=== PATIENT | female | born 1990 | race American Indian/Alaskan Native ===

== ENCOUNTER 2016-12-23 13:41 | Emergency (ER) | payer MEDICAID ==
[2016-12-23 14:53] LABS: Basophils % (Auto) 0.4 % (0.0-1.8); Eosinophils % (Auto) 0.2 % (0.0-4.3); Hematocrit 39.8 % (30.3-42.9); Hemoglobin 13.4 gm/dl (10.1-14.3); Mean Corpuscular HGB Conc 34 % (30-34); Mean Corpuscular Hemoglobin 31 pg (28-32); Mean Corpuscular Volume 91 fl (79-97); Platelet Count 280 K/mm3 (140-440); White Blood Count 10.1 K/mm3 (4.5-11.0)
[2016-12-23 15:23] LABS: Anion Gap 21 mmol/L; BUN/Creatinine Ratio 20; Blood Urea Nitrogen 10 mg/dL (7-17); Calcium 9.4 mg/dL (8.4-10.2); Carbon Dioxide 24 mmol/L (22-30); Chloride 97.8 mmol/L (98-107); Glucose 83 mg/dL (65-100); Potassium 4.3 mmol/L (3.6-5.0); Sodium 138 mmol/L (137-145)
[2016-12-23 16:18] LABS: Bilirubin,Urine NEG (Negative); Blood,Urine NEG (Negative); Ketones,Urine 20 mg/dL (Negative); Leukocyte Esterase,Urine TR (Negative); Mucus,Urine 3+ /HPF; Nitrite,Urine NEG (Negative)
[2016-12-23] MEDS ORDERED: ZOFRAN ODT ONE (19:25)
[2016-12-23] MEDS ORDERED: ZOFRAN ODT PO ONE (19:45)
--- NOTE | 2016-12-24 06:20 | Emergency Department Report ---
ED General Adult HPI - General Chief complaint: Nausea/Vomiting/Diarrhea Stated complaint: CHEST PAIN, VOMITING,NAUSEA Time Seen by Provider: 12/24/16 06:18 Source: patient Mode of arrival: Ambulatory Limitations: No Limitations - History of Present Illness Initial comments: This patient does not complain of chest pain whatsoever. She is not coughing or short of breath nor complaining of these symptoms. She simply states that she is 6 weeks having nausea and vomiting. She has no OB doctor. She has taken no medicine for her symptoms. She has not had a prior ultrasound. -: Gradual, hour(s) Improves with: none Worsens with: none Associated Symptoms: denies other symptoms - Related Data Previous Rx's Medication Instructions Recorded Last Taken Type Ondansetron [Zofran Odt] 4 mg PO Q6H PRN #7 tab.rapdis 12/24/16 Unknown Rx Allergies Allergy/AdvReac Type Severity Reaction Status Date / Time No Known Allergies Allergy Unverified 12/23/16 13:47 ED Review of Systems ROS: Stated complaint: CHEST PAIN, VOMITING,NAUSEA Other details as noted in HPI Constitutional: denies: chills, fever Eyes: denies: eye pain, eye discharge, vision change ENT: denies: ear pain, throat pain Respiratory: denies: cough, shortness of breath, wheezing Cardiovascular: denies: chest pain, palpitations Endocrine: no symptoms reported Gastrointestinal: nausea, vomiting. denies: abdominal pain, diarrhea Genitourinary: denies: urgency, dysuria, discharge Musculoskeletal: denies: back pain, joint swelling, arthralgia Skin: denies: rash, lesions Neurological: denies: headache, weakness, paresthesias Psychiatric: denies: anxiety, depression Hematological/Lymphatic: denies: easy bleeding, easy bruising ED Past Medical Hx - Past Medical History Additional medical history: 6 weeks by dates - Surgical History Additional Surgical History: - Social History Smoking Status: Former Smoker Substance Use Type: Marijuana - Medications Home Medications: Home Medications Medication Instructions Recorded Confirmed Last Taken Type Ondansetron [Zofran Odt] 4 mg PO Q6H PRN #7 tab.rapdis 12/24/16 Unknown Rx ED Physical Exam - General Limitations: No Limitations General appearance: alert, in no apparent distress - Head Head exam: Present: atraumatic, normocephalic - Eye Eye exam: Present: normal appearance. Absent: scleral icterus - ENT ENT exam: Present: mucous membranes moist - Neck Neck exam: Present: normal inspection - Respiratory Respiratory exam: Present: normal lung sounds bilaterally. Absent: respiratory distress - Cardiovascular Cardiovascular Exam: Present: regular rate, normal rhythm. Absent: systolic murmur, diastolic murmur, rubs, gallop - GI/Abdominal GI/Abdominal exam: Present: soft, normal bowel sounds. Absent: distended, tenderness, guarding, rebound, rigid - Extremities Exam Extremities exam: Present: normal inspection, full ROM, normal capillary refill. Absent: tenderness, pedal edema, joint swelling, calf tenderness - Back Exam Back exam: Present: normal inspection - Neurological Exam Neurological exam: Present: alert, oriented X3, CN II-XII intact. Absent: motor sensory deficit - Psychiatric Psychiatric exam: Present: normal affect, normal mood - Skin Skin exam: Present: warm, dry, intact, normal color. Absent: rash ED Course Vital Signs 12/23/16 12/24/16 12/24/16 13:47 02:15 08:35 Temperature 98.8 F 98.6 F 97.8 F Pulse Rate 94 H 67 86 Respiratory 18 18 Rate Blood Pressure 120/74 122/66 O2 Sat by Pulse 99 100 Oximetry - Reevaluation(s) Reevaluation #1: Patient resting comfortably. She has no complaint of chest pain. No complaint of shortness of breath. Her nausea has resolved. She is appropriate for outpatient disposition. 12/24/16 09:04 ED Medical Decision Making - Lab Data Result diagrams: 12/23/16 14:31 12/23/16 14:31 Laboratory Results - last 24 hr 12/23/16 12/23/16 12/23/16 14:31 14:31 14:31 WBC 10.1 RBC 4.40 Hgb 13.4 Hct 39.8 MCV 91 MCH 31 MCHC 34 RDW 12.0 L Plt Count 280 Lymph % (Auto) 29.4 [place] % (Auto) 7.5 H Eos % (Auto) 0.2 Baso % (Auto) 0.4 Lymph # 3.0 [place] # 0.8 Eos # 0.0 Baso # 0.0 Seg Neutrophils % 62.5 Seg Neutrophils # 6.3 Sodium 138 Potassium 4.3 Chloride 97.8 L Carbon Dioxide 24 Anion Gap 21 BUN 10 Creatinine 0.5 L Estimated GFR > 60 BUN/Creatinine Ratio 20 Glucose 83 Calcium 9.4 HCG, Qual Positive Urine Color Urine Turbidity Urine pH Ur Specific [place] Urine Protein Urine Glucose (UA) Urine Ketones Urine Blood Urine Nitrite Urine Bilirubin Urine Urobilinogen Ur Leukocyte Esterase Urine WBC (Auto) Urine RBC (Auto) U Epithel Cells (Auto) Urine Mucus 12/23/16 15:35 WBC RBC Hgb Hct MCV MCH MCHC RDW Plt Count Lymph % (Auto) [place] % (Auto) Eos % (Auto) Baso % (Auto) Lymph # [place] # Eos # Baso # Seg Neutrophils % Seg Neutrophils # Sodium Potassium Chloride Carbon Dioxide Anion Gap BUN Creatinine Estimated GFR BUN/Creatinine Ratio Glucose Calcium HCG, Qual Urine Color [place] Urine Turbidity Clear Urine pH 6.0 Ur Specific [place] 1.032 H Urine Protein 30 mg/dl Urine Glucose (UA) Neg Urine Ketones 20 Urine Blood Neg Urine Nitrite Neg Urine Bilirubin Neg Urine Urobilinogen 4.0 Ur Leukocyte Esterase Tr Urine WBC (Auto) 3.0 Urine RBC (Auto) 3.0 U Epithel Cells (Auto) 11.0 Urine Mucus 3+ Laboratory Results - last 24 hr 12/23/16 12/23/16 12/23/16 14:31 14:31 14:31 WBC 10.1 RBC 4.40 Hgb 13.4 Hct 39.8 MCV 91 MCH 31 MCHC 34 RDW 12.0 L Plt Count 280 Lymph % (Auto) 29.4 [place] % (Auto) 7.5 H Eos % (Auto) 0.2 Baso % (Auto) 0.4 Lymph # 3.0 [place] # 0.8 Eos # 0.0 Baso # 0.0 Seg Neutrophils % 62.5 Seg Neutrophils # 6.3 Sodium 138 Potassium 4.3 Chloride 97.8 L Carbon Dioxide 24 Anion Gap 21 BUN 10 Creatinine 0.5 L Estimated GFR > 60 BUN/Creatinine Ratio 20 Glucose 83 Calcium 9.4 HCG, Qual Positive Urine Color Urine Turbidity Urine pH Ur Specific [place] Urine Protein Urine Glucose (UA) Urine Ketones Urine Blood Urine Nitrite Urine Bilirubin Urine Urobilinogen Ur Leukocyte Esterase Urine WBC (Auto) Urine RBC (Auto) U Epithel Cells (Auto) Urine Mucus 12/23/16 15:35 WBC RBC Hgb Hct MCV MCH MCHC RDW Plt Count Lymph % (Auto) [place] % (Auto) Eos % (Auto) Baso % (Auto) Lymph # [place] # Eos # Baso # Seg Neutrophils % Seg Neutrophils # Sodium Potassium Chloride Carbon Dioxide Anion Gap BUN Creatinine Estimated GFR BUN/Creatinine Ratio Glucose Calcium HCG, Qual Urine Color [place] Urine Turbidity Clear Urine pH 6.0 Ur Specific [place] 1.032 H Urine Protein 30 mg/dl Urine Glucose (UA) Neg Urine Ketones 20 Urine Blood Neg Urine Nitrite Neg Urine Bilirubin Neg Urine Urobilinogen 4.0 Ur Leukocyte Esterase Tr Urine WBC (Auto) 3.0 Urine RBC (Auto) 3.0 U Epithel Cells (Auto) 11.0 Urine Mucus 3+ - EKG Data -: EKG Interpreted by Me EKG shows normal: sinus rhythm, axis, intervals, QRS complexes, ST-T waves Rate: normal - EKG Data Interpretation: normal EKG - Radiology Data Radiology results: report reviewed interpreted by me: Ultrasound shows 6 week viable fetus and no complication. Critical care attestation.: If time is entered above; I have spent that time in minutes in the direct care of this critically ill patient, excluding procedure time. ED Disposition Clinical Impression: Hyperemesis gravidarum Disposition: DC-01 TO HOME OR SELFCARE Is pt being admited?: No Does the pt Need Aspirin: No Condition: Stable Instructions: Hyperemesis Gravidarum (ED) Additional Instructions: Follow-up with human resources hr generalist. Rx as needed. Return any acute change or recurrent symptoms. Prescriptions: Ondansetron [Zofran Odt] 4 mg PO Q6H PRN #7 tab.rapdis PRN Reason: Nausea Referrals: PRIMARY CAREMD [Primary Care Provider] - 3-5 Days [facility] [Provider Group] - 2-3 Days Time of Disposition: 09:06
[2016-12-24] MEDS ORDERED: NACL 0.9% 1000 ML 1,000 ML IV ONE (06:44)
[2016-12-24] MEDS ORDERED: ZOFRAN IV ONE (06:44)
--- NOTE | 2016-12-24 08:24 | Ultrasound Report ---
FINAL REPORT EXAM: US OB \T\lt; = 14 WEEKS FETUS HISTORY: vomiting TECHNIQUE: Early obstetrical ultrasound. Transabdominal scanning performed. This is read in conjunction with transvaginal study performed concurrently. PRIORS: None. FINDINGS: There is a gestational sac in the uterus. This contains a small yolk sac and pole. The crown rump length measurement corresponds to a gestational age of 6 weeks 3 days. This corresponds to SUPRIYA of 08/16/2017. Patient's clinical age based on LMP of 11/07/2016 is 6 weeks 5 days with SUPRIYA of 08/14/2017.. Cardiac activity is identified, measured at 123 beats per minute. There is no subchorionic hemorrhage seen. Ovaries are unremarkable. IMPRESSION: There is a single live intrauterine of approximately 6 weeks 3 days with corresponding SUPRIYA of 08/16/2017 based on today's ultrasound measurements. There is no significant abnormality identified.
--- NOTE | 2016-12-24 08:24 | Ultrasound Report ---
FINAL REPORT EXAM: US OB TRANSVAGINAL HISTORY: vomiting TECHNIQUE: Early obstetrical ultrasound. Transvaginal scanning performed. This is read in conjunction with transabdominal study performed concurrently. PRIORS: None. FINDINGS: There is a gestational sac in the uterus. This contains a small yolk sac and pole. The crown rump length measurement corresponds to a gestational age of 6 weeks 3 days. This corresponds to SUPRIYA of 08/16/2017. Patient's clinical age based on LMP of 11/07/2016 is 6 weeks 5 days with SUPRIYA of 08/14/2017.. Cardiac activity is identified, measured at 123 beats per minute. There is no subchorionic hemorrhage seen. Ovaries are unremarkable. IMPRESSION: There is a single live intrauterine of approximately 6 weeks 3 days with corresponding SUPRIYA of 08/16/2017 based on today's ultrasound measurements. There is no significant abnormality identified.
[2016-12-24 10:54] VITALS: BP 112/61
== END 2016-12-24 10:10 | disposition home or self-care (01) ==
LOC: ED 13:41
DX: O21.0 Mild hyperemesis gravidarum (principal); F12.10 Cannabis abuse, uncomplicated; Z3A.01 Less than 8 weeks gestation of pregnancy; Z87.891 Personal history of nicotine dependence
CPT/HCPCS: 36415; 76801; 76817; 80048; 81001; 81025; 84703; 85025; 93005; 93010; 96361; 96374; 99284; J2405; J7030; Q0162

== ENCOUNTER 2017-06-02 04:13 | Outpatient (CLI) | payer OTHER, MEDICAID ==
[2017-06-02] MEDS ORDERED: LACTATED RINGERS 500 ML IV ONE (04:15)
[2017-06-02 04:29] VITALS: BP 115/56
[2017-06-02] MEDS ORDERED: NORMOSOL-R PH 7.4 1,000 ML IV ONE (04:35)
[2017-06-02] MEDS ORDERED: ZOFRAN IV PRN (05:13)
[2017-06-02 05:40] LABS: Bilirubin,Urine NEG (Negative); Blood,Urine NEG (Negative); Color,Urine Amber (Yellow); Mucus,Urine 3+ /HPF; Urobilinogen,Urine < 2.0 mg/dL (<2.0)
[2017-06-02] MEDS ORDERED: TRANSDERM-SCOP TD ONE (05:49)
[2017-06-02] MEDS ORDERED: REGLAN IV ONE (05:49)
== END 2017-06-02 06:35 | disposition home or self-care (01) ==
LOC: TRG 04:13
PROVIDERS: ATTEND Obstetrics & Gynecology
DX: O47.03 False labor before 37 completed weeks of gestation, third trimester (principal); Z3A.29 29 weeks gestation of pregnancy; Z87.891 Personal history of nicotine dependence
CPT/HCPCS: 59025; 81001; 96360; 96374; J2405; J2765; J7120

== ENCOUNTER 2017-07-17 16:04 | Inpatient (IN) | payer OTHER ==
[~2017-07-17 16:04] MED LIST: NACL 0.9% IR ONE; WATER FOR IRRIG STERILE IR ONE
[2017-07-17 17:21] LABS: Bacteria,Urine 3+ /HPF (Negative); Bilirubin,Urine SM (Negative); Blood,Urine NEG (Negative); Color,Urine Amber (Yellow); Mucus,Urine 3+ /HPF
[2017-07-17 17:24] LABS: Hematocrit 28.9 % (30.3-42.9); Hemoglobin 9.9 gm/dl (10.1-14.3); Mean Corpuscular HGB Conc 34 % (30-34); Mean Corpuscular Hemoglobin 31 pg (28-32); Mean Corpuscular Volume 89 fl (79-97); Platelet Count 147 K/mm3 (140-440); Red Blood Count 3.23 M/mm3 (3.65-5.03); Red Cell Distribution Width 13.2 % (13.2-15.2)
[2017-07-17 17:25] LABS: Ictotest,Urine Negative (Negative)
[2017-07-17 17:58] LABS: Alanine Aminotransferase 5 units/L (7-56)
[2017-07-17] MEDS ORDERED: DEEP SEA NS PRN (18:05)
[2017-07-17] MEDS ORDERED: COLACE PO PRN (18:05)
[2017-07-17] MEDS ORDERED: AMBIEN PO PRN (18:05)
[2017-07-17] MEDS ORDERED: ZOFRAN IV PRN (18:05)
[2017-07-17] MEDS ORDERED: BENADRYL PO PRN (18:05)
[2017-07-17] MEDS ORDERED: TYLENOL PO PRN (18:05)
--- NOTE | 2017-07-17 18:08 | History and Physical Report ---
History of Present Illness Date of examination: 07/17/17 Chief complaint: sent from the office with elevated blood pressures History of present illness: Pt is a 27 year old -Filipino female SUPRIYA 08/12/17 at 36w2d who presents from the office with lower extremity edema and elevated blood pressures. BPs in mild range and pt denies any symptoms of headache, blurry vision or RUQ pain presently. She reports good movement and denies vaginal bleeding or leakage of fluid. She has had care at [facility] since 10 wks with comanagement by M secondary to a h/o of 32 wks; Rubella non-immune status, nausea and vomiting throughout the entire , anemia, trichomonas s/p RX for Flagyl today and previous section x 1. Her GBS status is not available at this time. Past History Past Medical History: no pertinent history Past Surgical History: section [employer] History: chlamydia (remote from this ), gonorrhea (not), trichomonas (treated on 07/17/17 ) Family/Genetic History: diabetes Social history: no significant social history - Obstetrical History Expected Date of Delivery: 08/12/17 Actual Gestation: 36 Week(s) 2 Day(s) : 2 Para: 1 Hx # Term Pregnancies: 0 Number of Pregnancies: 1 Spontaneous Abortions: 0 Induced : 0 Number of Living Children: 1 Medications and Allergies Allergies Allergy/AdvReac Type Severity Reaction Status Date / Time No Known Allergies Allergy Verified 01/10/17 20:17 Home Medications Medication Instructions Recorded Confirmed Last Taken Type No Known Home Medications [No 07/17/17 07/17/17 Unknown History Reported Home Medications] Active Meds: Active Medications Acetaminophen (Tylenol) 650 mg PO Q4H PRN PRN Reason: Pain MILD(1-3)/Fever >100.5/ROWELL Diphenhydramine HCl (Benadryl) 25 mg PO Q6H PRN PRN Reason: Itching Docusate Sodium (Colace) 100 mg PO Q12H PRN PRN Reason: Constipation Lactated Ringer's (Lactated Ringers) 1,000 mls @ 100 mls/hr IV DIRECT CHRISTOPHER Review of Systems All systems: negative - Vital Signs Vital signs: Vital Signs Pulse BP 81 134/81 07/17/17 16:44 07/17/17 16:44 Temp Pulse Resp BP Pulse Ox 80 134/88 07/17/17 17:59 07/17/17 17:59 - Physical Exam Breasts: Positive: deferred Cardiovascular: Regular rate Lungs: Positive: Clear to auscultation Abdomen: Positive: soft (gravid, obese ) Uterus: Positive: enlarged (gravid ) Extremities: Positive: edema (2+) - Obstetrical FHR: auscultation normal Uterine Contraction Monitor Mode: External Uterine Contraction Pattern: Irregular Uterine Tone Measurement Phase: Resting Uterine Contraction Intensity: Mild Results Result Diagrams: 07/17/17 16:51 07/17/17 16:51 Abnormal lab results 07/17/17 07/17/17 07/17/17 Range/Units 16:30 16:51 16:51 RBC 3.23 L (3.65-5.03) M/mm3 Hgb 9.9 L (10.1-14.3) gm/dl Hct 28.9 L (30.3-42.9) % Creatinine 0.6 L (0.7-1.2) mg/dL ALT 5 L (7-56) units/L Lactate Dehydrogenase 317 H (91-180) units/L Urine WBC (Auto) 59.0 H (0.0-6.0) /HPF All other labs normal. Assessment and Plan A: IUP at 36w2d Gestational HTN vs Preeclampsia Previous x 1 H/o 32 wk delivery Trichomonas GBS unknown P: Admit to antepartum service Begin 24 hr urine collection Serial BPs Monitor for signs of severe disease Closely monitor maternal and status
[2017-07-17] MEDS ORDERED: LACTATED RINGERS 1,000 ML IV SCH ×3 (19:00→20:00)
[2017-07-17] MEDS ORDERED: MAGNESIUM SULFATE 4GM/100ML 4 GM/100 ML BAG IV ONE (19:51)
[2017-07-17] MEDS ORDERED: BICITRA PO ONE (19:54)
[2017-07-17] MEDS ORDERED: CALCIUM GLUCONATE IV ONE (19:54)
[2017-07-17] MEDS ORDERED: PEPCID IV ONE (19:54)
[2017-07-17] MEDS ORDERED: REGLAN IV ONE (19:54)
[2017-07-17] MEDS ORDERED: APRESOLINE IV PRN (19:54)
--- NOTE | 2017-07-17 19:59 | Event Note ---
Date: 07/17/17 Late entry. Called by RN for notification of blood pressures with systolic BP 170-180s and headache. Pt with severe features. Begin magnesium sulfate for seizure prophylaxis and prepare pt for repeat section. There are three cesareans already scheduled prior to this one. Continue to closely monitor maternal and status.
[2017-07-17] MEDS ORDERED: PITOCin/NS 20 UNIT/1000ML DRIP 20 UNITS/1,000 ML BAG IV SCH ×2 (20:00)
[2017-07-17] MEDS ORDERED: ANCEF/STERILE WATER 2 GM/20 ML 2 GM/20 ML SYRINGE IV NR (20:00)
[2017-07-17] MEDS ORDERED: MAGNESIUM SULFATE 40GM/1000ML 40 GM/1,000 ML BAG IV SCH (20:00)
[2017-07-17] MEDS: MAGNESIUM SULFATE 40GM/1000ML 40 GM/1,000 ML BAG IV SCH (21:15)
[2017-07-17] MEDS ORDERED: CELESTONE SOLUSPAN IM ONE (21:17)
[2017-07-17] MEDS ORDERED: FLAGYL PO ONE (21:49)
--- NOTE | 2017-07-18 01:18 | Procedure Note ---
OB Delivery Note - Delivery Date of Delivery: 07/18/17 Surgeon: VIRIDIANA PEREZ Estimated blood loss: other (800 mL) - Section Preop diagnosis: repeat , other (Severe Preeclampsia ) Postop diagnosis: same section procedure: section, repeat low transverse Disposition: PACU Complications: none Narrative: Please see operative report. - A at 1 minute: 8 at 5 minutes: 9 Infant Gender: Female (3021g (6lb 10 oz) @ 0020 am)
--- NOTE | 2017-07-18 01:20 | Operative Report ---
Operative Report Operative Report: Date of procedure: July 18, 2017 Preoperative diagnosis: 1) IUP at 36w3d 2) Severe Preeclampsia 3) Previous x 1 4) Obesity Postoperative diagnosis: Same Procedure: Repeat low transverse section Surgeon: Hui Blank M.D. Anesthesia: Spinal-Epidural Findings: 1) Viable female , Apgars 8 and 9, weight 3021g, (6 lb 10 oz) in vertex presentation 2) Normal-appearing uterus ovaries and tubes Estimated blood loss: 800 mL IV fluids: 1400 mL Urine output: 200 mL, clear at the end of the procedure Drains: Nieves to gravity Specimens: Placenta to pathology Complications: None. Counts correct x 3 Disposition: Stable to PACU Indication for procedure: Pt is 27 year old at 36w3d who was developed severe preeclampsia with a h/o one previous . The decision was made to proceed with delivery. Operation in detail: After the risks, benefits, alternatives and complications were explained to the patient she gave informed consent for the procedure. She was subsequently taken to the operating room where spinal-epidural anesthesia was noted to be adequate. She was subsequently placed in the dorsal supine position with leftward tilt and prepped and draped in a normal sterile fashion. heart tones were noted to be in the 135s prior to incision. A timeout was performed. A Pfannenstiel skin incision was made with the knife and carried down to the layer of the fascia with the Bovie. The fascia was incised in the midline and the fascial incision was extended bilaterally with the Bovie. Attention was then turned to the superior aspect of the incision which was grasped with two Kochers, tented up, and dissected off the rectus muscles. Attention was then turned to the inferior aspect of the incision which was grasped with two Kochers , tented up and dissected off the rectus muscles. The rectus muscles were then in the midline and partially transected for adequate visualization. The peritoneum was then entered bluntly. The peritoneal incision was extended with good visualization of the bladder. The peritoneal incision was then stretched. An Lenin self-retaining retractor was placed for visualization. The bladder blade was placed. The vesicouterine peritoneum was grasped with smooth pickups and incised with Metzenbaum scissors. Metzenbaum scissors were used to extend the incision bilaterally. The bladder flap was then created digitally and the bladder blade was replaced. A transverse incision was made in the lower uterine segment with a knife and extended bilaterally with the bandage scissors. The head was delivered without difficulty followed by shoulders and body. was bulb suctioned at delivery. The cord was clamped and cut and the was handed to NICU staff in attendance. The placenta was then delivered manually. The uterus was then exteriorized and cleared of all clots and debris. The hysterotomy was then reapproximated with 0 Vicryl in a running locked fashion. A second layer of the same suture was used in imbricating fashion. A figure of eight of 0 Vicryl was placed at the center of the incision to obtain hemostais. The hysterotomy was inspected and hemostasis was noted. The Lenin self- retaining retractor was removed. The gutters were irrigated and cleared of all clots and debris. The hysterotomy was again inspected and noted to be hemostatic. Surgicel was placed over the hysterotomy. The peritoneum was reapproximated with 3-0 Vicryl in a running fashion incorporating the rectus muscles. Surgicel was then placed over the rectus muscles. The fascia was reapproximated with 0 Vicryl in a running fashion. The subcutaneous tissue was reapproximated with 3-0 Vicryl. The skin was reapproximated with 4-0 Vicryl in a subcuticular fashion. The incision was then covered with steri strips and a pressure dressing. The procedure was then ended. The patient tolerated the procedure well and was taken to the PACU in stable condition. All instrument, lap, and needle counts were correct 3.
[2017-07-18] MEDS ORDERED: NARCAN 0.4 MG/1 ML IV PRN ×2 (01:40→03:48)
[2017-07-18] MEDS ORDERED: PHENERGAN PO PRN (01:40)
[2017-07-18] MEDS ORDERED: PHENERGAN PR PRN (01:40)
[2017-07-18] MEDS ORDERED: ZOFRAN IV PRN (01:40)
[2017-07-18] MEDS ORDERED: DILAUDID IV PRN (01:40)
--- NOTE | 2017-07-18 01:43 | Post Anesthesia Evaluation ---
- Post Anesthesia Evaluation Airway Patent: Yes Stable Respiratory Function: Yes Nausea/Vomiting: Yes Temp > 96.8F: Yes Pain Manageable: Yes Adequeate Hydration: Yes Anesthesia Complications: No Block Receding Appropriately: Not Applicable
[2017-07-18] MEDS: MAGNESIUM SULFATE 40GM/1000ML 40 GM/1,000 ML BAG IV SCH ×2 (02:05→16:55)
[2017-07-18] MEDS ORDERED: ANCEF/NS 1 GM/50 ML 1 GM/50 ML BAG IV SCH (03:48)
[2017-07-18] MEDS ORDERED: PITOCin/NS 20 UNIT/1000ML DRIP 20 UNITS/1,000 ML BAG IV SCH (03:48)
[2017-07-18] MEDS ORDERED: MYLICON PO PRN (03:48)
[2017-07-18] MEDS ORDERED: TORADOL IV PRN (03:48)
[2017-07-18] MEDS ORDERED: D5LR 1,000 ML IV SCH (03:48)
[2017-07-18] MEDS ORDERED: TUCKS PAD TP PRN (03:48)
[2017-07-18] MEDS ORDERED: TYLENOL PO PRN (03:48)
[2017-07-18] MEDS ORDERED: LANSINOH TP PRN (03:48)
[2017-07-18] MEDS ORDERED: SODIUM CHLORIDE FLUSH SYRINGE 10 ML IV NR (03:48)
[2017-07-18] MEDS ORDERED: MORPHINE IV PRN (03:48)
[2017-07-18] MEDS ORDERED: FLAGYL PO ONE (04:00)
[2017-07-18] MEDS ORDERED: ceFAZolin 1 GM in NACL 0.9% 20 ML IV SCH (04:00)
[2017-07-18] MEDS: ceFAZolin 1 GM in NACL 0.9% 20 ML IV SCH ×2 (08:17→16:49)
[2017-07-18] MEDS ORDERED: PRENATAL VITAMIN PO SCH (10:00)
[2017-07-18] MEDS: FEOSOL PO SCH (10:04)
[2017-07-18 13:54] LABS: Hematocrit 30.8 % (30.3-42.9); Hemoglobin 10.4 gm/dl (10.1-14.3)
[2017-07-18] MEDS: PERCOCET 5/325 PO PRN (21:57)
[2017-07-18] MEDS: MOTRIN PO PRN (21:59)
[2017-07-19] MEDS ORDERED: BOOSTRIX IM ONE (06:00)
[2017-07-19] MEDS ORDERED: M-M-R II VACCINE SUB-Q ONE (06:00)
[2017-07-19] MEDS: PERCOCET 5/325 PO PRN ×2 (08:15→13:15)
[2017-07-19] MEDS: MOTRIN PO PRN ×2 (08:15→16:49)
--- NOTE | 2017-07-19 08:54 | Progress Note ---
Assessment and Plan A: POD#1 s/p repeat section at 36 wks secondary to severe preeclampsia s/p 24 hrs of magnesium sulfate P: Routine postoperative care. Subjective - Subjective Date of service: 07/19/17 Principal diagnosis: s/p repeat , severe preeclampsia Interval history: No complaints at this time. Patient reports: appetite normal, voiding normally, pain well controlled, flatus , ambulating normally, no bowel movement : in NICU Objective - Vital Signs Latest vital signs: Vital Signs Temp Pulse Resp BP Pulse Ox 07/19/17 06:14 97.7 F 57 L 20 118/70 96 07/19/17 01:00 97.7 F 67 20 119/77 98 07/18/17 21:57 20 07/18/17 20:42 98.4 F 77 18 126/83 97 07/18/17 18:03 97.7 F 73 16 143/85 100 07/18/17 16:00 98.1 F 75 20 127/83 96 07/18/17 14:34 98.2 F 78 20 137/87 96 07/18/17 11:54 98.1 F 77 16 140/84 95 Intake and Output 07/18/17 07/19/17 07/19/17 22:59 06:59 14:59 Intake Total 1501.667 240 Output Total 2800 600 Balance -1298.333 -360 Intake: IV 741.667 MAGNESIUM SULFATE 40GM/ 741.667 1000ML 40 gm In 1,000 ml @ 2 GM/HR 50 mls/hr IV DIRECT CHRISTOPHER Rx#:[id number] Oral 760 240 Output: Urine 2800 600 Indwelling Catheter 2800 Void 600 Other: Total, Intake Amount 240 240 Total, Output Amount 1200 600 - Exam Breasts: Present: deferred Cardiovascular: Present: Regular rate Lungs: Present: Clear to auscultation Abdomen: Present: soft Uterus: Present: fundal height below umbilicus Extremities: Present: edema Incision: Present: dressed - Labs Labs: Abnormal lab results 07/18/17 07/18/17 Range/Units 13:35 19:24 Magnesium 5.40 H 5.50 H (1.7-2.3) mg/dL
[2017-07-19] MEDS: MILK OF MAGNESIA PO SCH ×2 (13:15→22:40)
[2017-07-19] MEDS: FEOSOL PO SCH (13:15)
[2017-07-20] MEDS: PERCOCET 5/325 PO PRN (03:25)
[2017-07-20] MEDS: MILK OF MAGNESIA PO SCH (04:30)
--- NOTE | 2017-07-20 18:48 | Progress Note ---
Assessment and Plan O: VSS AF A: Stable POD #2 s/p repeat C/S PIH P: Routine orders Discharge in am Subjective - Subjective Date of service: 07/20/17 Principal diagnosis: s/p repeat , severe preeclampsia Patient reports: appetite normal, voiding normally, pain well controlled, flatus , ambulating normally, other (c/o pedal edema) [place]: doing well, in NICU Objective - Vital Signs Latest vital signs: Vital Signs Temp Pulse Resp BP Pulse Ox 07/20/17 11:30 98.1 F 53 L 16 122/66 96 07/20/17 01:13 97.9 F 61 20 143/84 95 Intake and Output 07/20/17 07/20/17 07/20/17 06:59 14:59 22:59 Intake Total 240 Balance 240 Intake: Oral 240 Other: Total, Intake Amount 240 # Voids Void 1 - Exam Breasts: Present: deferred Abdomen: Present: normal appearance, soft. Absent: distention, tenderness Uterus: Present: normal, firm, fundal height below umbilicus. Absent: bogginess , tenderness Extremities: Present: normal, edema Incision: Present: normal, dry, intact, other (steri strips)
[2017-07-20] MEDS: MOTRIN PO PRN (20:05)
[2017-07-21] MEDS: MILK OF MAGNESIA PO SCH (00:10)
[2017-07-21] MEDS ORDERED: FLAGYL PO ONE (06:03)
--- NOTE | 2017-07-21 06:11 | Progress Note ---
Assessment and Plan A/P POD #3 s/p repeat csec for severe preeclampsia Baby in [place] doing well UTI increase leuko in urine and large wbcs-started macrobid s/p Mag for preeclampsia no antihypertensives BP wnl if VSS consdier d/c home today or in am Subjective - Subjective Date of service: 07/21/17 Principal diagnosis: s/p repeat , severe preeclampsia Patient reports: appetite normal, voiding normally, pain well controlled, flatus , ambulating normally : doing well, in NICU Objective - Vital Signs Latest vital signs: Vital Signs Temp Pulse Resp BP BP Pulse Ox 07/21/17 00:20 98.3 F 64 20 136/85 98 07/20/17 17:58 99.5 F 60 20 125/75 98 07/20/17 11:30 98.1 F 53 L 16 122/66 96 Intake and Output 07/20/17 07/20/17 07/21/17 15:59 23:59 07:59 Intake Total 240 240 360 Balance 240 240 360 Intake: Oral 240 240 360 Other: Total, Intake Amount 240 240 120 # Voids Void 1 1 11 - Exam Breasts: Present: normal Cardiovascular: Present: Regular rate, Normal S1 Lungs: Present: Clear to auscultation, Normal air movement Abdomen: Present: normal appearance, soft, normal bowel sounds. Absent: distention, tenderness, guarding Vulva: both: normal Uterus: Present: normal, firm, fundal height below umbilicus. Absent: bogginess , tenderness Extremities: Present: normal Deep Tendon Reflex Grade: Normal +2 Incision: Present: normal, dry, intact
[2017-07-21] MEDS: MACROBID PO SCH (10:45)
[2017-07-21] MEDS: FEOSOL PO SCH (10:46)
[2017-07-21] MEDS: PERCOCET 5/325 PO PRN (13:57)
[2017-07-21] MEDS: NORMODYNE PO SCH (17:17)
[2017-07-21 18:36] LABS: Hematocrit 27.1 % (30.3-42.9); Hemoglobin 8.9 gm/dl (10.1-14.3); Mean Corpuscular HGB Conc 33 % (30-34); Mean Corpuscular Hemoglobin 30 pg (28-32); Mean Corpuscular Volume 92 fl (79-97); Platelet Count 174 K/mm3 (140-440); Red Blood Count 2.93 M/mm3 (3.65-5.03); Red Cell Distribution Width 14.1 % (13.2-15.2)
[2017-07-21 18:52] LABS: Alanine Aminotransferase 33 units/L (7-56); Uric Acid 4.3 mg/dL (3.5-7.6)
[2017-07-22] MEDS: NORMODYNE PO SCH ×2 (01:06→09:24)
[2017-07-22] MEDS: MACROBID PO SCH ×2 (01:07→09:23)
[2017-07-22] MEDS: MILK OF MAGNESIA PO SCH ×2 (01:10→12:12)
[2017-07-22] MEDS: FEOSOL PO SCH (09:23)
[2017-07-22] MEDS: MOTRIN PO PRN (09:57)
--- NOTE | 2017-07-22 11:56 | Progress Note ---
Assessment and Plan POD 4 s/p ltcs. Doing well. Patient still has elevated blood pressures. Will add Procardia XL to regimen to help with blood pressure control. Subjective - Subjective Date of service: 07/22/17 Principal diagnosis: s/p repeat , severe preeclampsia Patient reports: appetite normal, voiding normally, pain well controlled, ambulating normally : doing well Objective - Vital Signs Latest vital signs: Vital Signs Temp Pulse Resp BP BP Pulse Ox 07/22/17 10:11 161/93 07/22/17 09:24 170/97 07/22/17 09:07 98.8 F 63 18 179/97 93 07/22/17 04:12 99.1 F 66 18 166/85 93 07/22/17 02:22 61 18 166/75 98 07/22/17 01:06 57 L 185/95 07/22/17 00:08 99.0 F 57 L 20 185/95 97 07/21/17 17:17 64 153/89 07/21/17 16:10 98.2 F 58 L 20 158/90 07/21/17 15:50 55 L 161/90 07/21/17 13:25 98.9 F 56 L 20 144/86 Intake and Output 07/21/17 07/22/17 07/22/17 22:59 06:59 14:59 Intake Total 240 620 Balance 240 620 Intake: Oral 240 Blood Product 620 Other: Total, Intake Amount 240 620 Voiding Method Toilet # Voids Void 1 2 # Bowel Movements 0 - Exam Breasts: Present: deferred Cardiovascular: Present: Regular rate, Normal S1, Normal S2 Lungs: Present: Clear to auscultation, Normal air movement Abdomen: Present: normal appearance, normal bowel sounds - Labs Labs: Abnormal lab results 07/21/17 07/21/17 Range/Units 18:01 18:01 RBC 2.93 L (3.65-5.03) M/mm3 Hgb 8.9 L (10.1-14.3) gm/dl Hct 27.1 L (30.3-42.9) % Creatinine 0.5 L (0.7-1.2) mg/dL AST 67 H (5-40) units/L Lactate Dehydrogenase 357 H (91-180) units/L
[2017-07-22] MEDS: PROCARDIA XL PO SCH (12:06)
[2017-07-23] MEDS: PROCARDIA XL PO SCH ×2 (00:30→10:41)
[2017-07-23] MEDS: MACROBID PO SCH ×2 (00:30→10:41)
[2017-07-23] MEDS: NORMODYNE PO SCH ×2 (00:31→10:00)
[2017-07-23] MEDS: MOTRIN PO PRN (06:47)
[2017-07-23] MEDS: FEOSOL PO SCH (10:40)
--- NOTE | 2017-07-23 12:30 | Progress Note ---
Assessment and Plan PPD 5 s/p ltcs. Now with improvement in blood pressure. Will give patient script for home use and plan for discharge on today Subjective - Subjective Date of service: 07/23/17 Principal diagnosis: s/p repeat , severe preeclampsia Interval history: Patient finally has bp in normal range. will plan for discharge on today Patient reports: appetite normal, voiding normally, pain well controlled [place]: in NICU Objective - Vital Signs Latest vital signs: Vital Signs Temp Pulse Resp BP BP Pulse Ox 07/23/17 08:58 98.4 F 93 H 18 129/71 97 07/23/17 05:10 98.8 F 69 20 125/65 93 07/23/17 00:31 56 L 150/82 07/23/17 00:26 98.9 F 18 150/82 07/22/17 17:30 98.6 F 64 18 136/77 97 07/22/17 13:50 56 L 154/95 Intake and Output 07/22/17 07/23/17 07/23/17 22:59 06:59 14:59 Intake Total 360 Balance 360 Intake: Intake, Free Water 360 Other: # Voids Void 3 - Exam Cardiovascular: Present: Regular rate, Normal S1, Normal S2 Lungs: Present: Clear to auscultation, Normal air movement Abdomen: Present: normal appearance, soft Vulva: both: normal Uterus: Present: normal, firm Extremities: Present: normal Incision: Present: normal, dry, intact
--- NOTE | 2017-07-23 12:31 | Discharge Summary ---
Providers - Providers Date of Admission: 07/17/17 18:58 Date of discharge: 07/23/17 Attending physician: VIRIDIANA PEREZ 07/18/17 03:48 Consult to Rn Unit Manager [CONS] Routine Reason For Exam: Primary care physician: ALFRED MULLEN MD Hospitalization Reason for admission: induction of labor Delivery: Procedure: primary low transverse Discharge diagnosis: delivery [place] baby: female Hospital course: complicated by elevated blood pressure Condition at discharge: Good Disposition: DC-01 TO HOME OR SELFCARE Plan - Discharge Medications Prescriptions: Ibuprofen [Motrin] 600 mg PO Q8H PRN #30 tablet PRN Reason: Pain NIFEdipine XL [Procardia Xl] 60 mg PO Q12HR #60 tab Nitrofurantoin Monohyd/M-Cryst [Macrobid 100 mg Capsule] 100 mg PO BID #7 capsule oxyCODONE /ACETAMINOPHEN [Percocet 5/325] 1 tab PO Q6HR PRN #30 tablet PRN Reason: Pain - Provider Discharge Summary Activity: routine, no sex for 6 weeks, no heavy lifting 4 weeks, no strenuous exercise Diet: routine Instructions: routine Additional instructions: [] Smoking cessation referral if applicable(refer to patient education folder for contact #) [] Refer to [facility]'s [facility] [address] Booklet Call your doctor immediately for: * Fever > 100.5 * Heavy vaginal bleeding ( >1 pad per hour) * Severe persistent headache * Shortness of breath * Reddened, hot, painful area to leg or breast * Drainage or odor from incision. * Keep incision clean and dry at all times and follow doctor's instructions regarding bathing/showering - Follow up plan Follow up: ALFRED MULLEN MD [Primary Care Provider] - 7 Days
[2017-07-23] MEDS: MILK OF MAGNESIA PO SCH (15:53)
[2017-07-23 18:42] VITALS: BP 113/69
== END 2017-07-23 19:27 | disposition home or self-care (01) | DRG 765 ==
LOC: TRG 16:04 → LD 18:58 → OB 07-18 03:47
PROVIDERS: ADMIT Obstetrics & Gynecology; ATTEND Obstetrics & Gynecology
PROC: 10D00Z1 Extraction of Products of Conception, Low, Open Approach (ICD-10-PCS; principal; 2017-07-18)
DX: O34.211 Maternal care for low transverse scar from previous cesarean delivery (principal); O75.3 Other infection during labor; N39.0 Urinary tract infection, site not specified; Z3A.36 36 weeks gestation of pregnancy; Z37.0 Single live birth; Z83.3 Family history of diabetes mellitus; O14.14 Severe pre-eclampsia complicating childbirth; O99.214 Obesity complicating childbirth; E66.9 Obesity, unspecified; Z68.33 Body mass index [BMI] 33.0-33.9, adult; Z23 Encounter for immunization
CPT/HCPCS: 36415; 81001; 82565; 82962; 83615; 83735; 84450; 84460; 84550; 85014; 85018; 85027; 86850; 86900; 86901; 88307; 99211; G0463; J0360; J0610; J0690; J0702; J1170; J1885; J2405; J2590; J2765; J3475; J7120; J7121

== ENCOUNTER 2019-12-23 16:15 | Observation (INO) | payer MEDICAID ==
[2019-12-23] MEDS ORDERED: ACETAMINOPHEN 325 MG TAB PO PRN (16:44)
[2019-12-23] MEDS ORDERED: ONDANSETRON 4 MG/2 ML INJ IV PRN (16:44)
[2019-12-23] MEDS ORDERED: AZITHROMYCIN 250 MG TAB PO ONE (17:00)
[2019-12-23] MEDS: D5W/LACTATED RINGERS 1,000 ML IV SCH ×3 (18:31→22:26)
[2019-12-23 18:37] LABS: Basophils # (Auto) 0.1 K/mm3 (0.0-0.1); Basophils % (Auto) 0.7 % (0.0-1.8); Eosinophils % (Auto) 0.1 % (0.0-4.3); Lymphocytes % (Auto) 14.6 % (13.4-35.0); Mean Corpuscular HGB Conc 34 % (30-34); Mean Corpuscular Volume 92 fl (79-97); Monocytes # (Auto) 0.8 K/mm3 (0.0-0.8); Monocytes % (Auto) 6.1 % (0.0-7.3); Platelet Count 391 K/mm3 (140-440); Red Blood Count 4.47 M/mm3 (3.65-5.03); Red Cell Distribution Width 12.6 % (13.2-15.2)
[2019-12-23] MEDS: PROMETHAZINE 25 MG RECT SUPP PR SCH ×2 (18:45→22:27)
[2019-12-23 18:59] LABS: Blood Urea Nitrogen 10 mg/dL (7-17); Calcium 9.4 mg/dL (8.4-10.2); Hemolysis Index 13
[2019-12-23 19:01] LABS: BUN/Creatinine Ratio 17
[2019-12-23 19:03] LABS: Hepatitis B Surface Antigen Non-Reactive (Negative); Hepatitis C Virus Antibody Non-Reactive (NonReactive)
[2019-12-23] MEDS: METOCLOPRAMIDE 10 MG/2 ML INJ IV SCH (22:27)
[2019-12-24 00:05] LABS: Bacteria,Urine 1+ /HPF (Negative); Bilirubin,Urine NEG (Negative); Blood,Urine NEG (Negative); Color,Urine Amber (Yellow); Mucus,Urine 3+ /HPF
[2019-12-24] MEDS: METOCLOPRAMIDE 10 MG/2 ML INJ IV SCH (04:46)
[2019-12-24] MEDS: PROMETHAZINE 25 MG RECT SUPP PR SCH (04:46)
[2019-12-24] MEDS: D5W/LACTATED RINGERS 1,000 ML IV SCH (04:47)
--- NOTE | 2019-12-24 09:35 | History and Physical Report ---
History of Present Illness Date of examination: 12/24/19 Date of admission: 12/23/19 16:58 History of present illness: 29 y.o. @ 10.5wks EDUIN presents for observation of Hyperemesis Grav idarum. She presented with the complaint of excessive N/V. Past History Past Surgical History: section (x 2) [employer] History: chlamydia, gonorrhea, herpes, trichomonas Family/Genetic History: none Social history: no significant social history - Obstetrical History Expected Date of Delivery: 07/16/20 Actual Gestation: 10 Week(s) 5 Day(s) : 4 Para: 2 Hx # Term Pregnancies: 1 Number of Pregnancies: 1 Induced : 1 Number of Living Children: 2 Medications and Allergies Allergies Allergy/AdvReac Type Severity Reaction Status Date / Time No Known Allergies Allergy Verified 01/10/17 20:17 Home Medications Medication Instructions Recorded Confirmed Last Taken Type Metoclopramide [Reglan TAB] 1 tab PO DAILY 12/23/19 12/23/19 12/19/19 History cephALEXin [Keflex] 500 mg PO Q8HR 12/23/19 12/23/19 Unknown History Active Meds: Active Medications Acetaminophen (Tylenol) 650 mg PO Q4H PRN PRN Reason: Pain MILD(1-3)/Fever >100.5/ROWELL Dextrose/Lactated Ringer's (D5lr) 1,000 mls @ 500 mls/hr IV DIRECT CHRISTOPHER Stop: 12/24/19 18:59 Last Admin: 12/23/19 20:22 Dose: 500 mls/hr Documented by: Dextrose/Lactated Ringer's (D5lr) 1,000 mls @ 150 mls/hr IV DIRECT CHRISTOPHER Last Admin: 12/24/19 04:47 Dose: 150 mls/hr Documented by: Metoclopramide HCl (Reglan) 10 mg IV Q6H CHRISTOPHER Last Admin: 12/24/19 04:46 Dose: 10 mg Documented by: Multivitamins/Iron/Calcium ( Vitamin) 1 each PO QDAY [facility] Ondansetron HCl (Zofran) 4 mg IV Q6H PRN PRN Reason: N/V unrelieved by Reglan Promethazine HCl (Phenergan) 25 mg MN Q6H [facility] Last Admin: 12/24/19 04:46 Dose: 25 mg Documented by: - Vital Signs Vital signs: Vital Signs Pulse 88 12/23/19 17:40 Temp Pulse Resp BP Pulse Ox 98.1 F 80 20 127/70 98 12/24/19 07:14 12/24/19 07:14 12/24/19 08:30 12/24/19 07:14 12/24/19 07:14 Results Result Diagrams: 12/23/19 18:09 12/23/19 18:09 Abnormal lab results 12/23/19 12/23/19 12/23/19 Range/Units 18:09 18:09 22:55 WBC 13.9 H (4.5-11.0) K/mm3 RDW 12.6 L (13.2-15.2) % Seg Neutrophils % 78.5 H (40.0-70.0) % Seg Neutrophils # 10.9 H (1.8-7.7) K/mm3 Sodium 135 L (137-145) mmol/L Potassium 3.3 L (3.6-5.0) mmol/L Chloride 96.7 L (98-107) mmol/L Carbon Dioxide 21 L (22-30) mmol/L Ur Specific [place] 1.034 H (1.003-1.030) Urine WBC (Auto) 12.0 H (0.0-6.0) /HPF All other labs normal. Assessment and Plan A: Pt has no current complaints. States she is "feeling a little better". Denies further episodes of emesis since admission. P: Discharge upon completion of successful P.O. challenge. [facility] home [facility] referral will be initiated by .
[2019-12-24] MEDS ORDERED: PRENATAL VIT27-FE FUMARATE-FOLIC ACID VIT TAB PO SCH ×2 (10:00)
--- NOTE | 2019-12-24 10:07 | Discharge Summary ---
Providers - Providers Date of Admission: 12/23/19 16:58 Date of discharge: 12/24/19 Attending physician: VIRIDIANA PEREZ 12/23/19 16:45 Consult to Dietitian/Nutrition [CONS] Routine Physician Instructions: Reason For Exam: Reason for Consult: Hyperemesis gravidarum Consult to Dietitian/Nutrition [CONS] Routine Physician Instructions: Home health referral Reason For Exam: Reason for Consult: hyper grav Reason for Consult: Hyperemesis gravidarum Primary care physician: VIRIDIANA PEREZ Hospitalization Reason for admission: observation (Hyperemesis Gravidarum) Condition at discharge: Good Disposition: DC-01 TO HOME OR SELFCARE Plan - Discharge Medications Prescriptions: Ondansetron [Zofran ODT TAB] 8 mg PO Q12HR #60 tab.rapdis - Provider Discharge Summary Diet: other (Routine diet, but small frequent meals) Instructions: routine Additional instructions: [] Smoking cessation referral if applicable(refer to patient education folder for contact #) [] Refer to [facility] Booklet Call your doctor immediately for: * Fever > 100.5 * Heavy vaginal bleeding ( >1 pad per hour) * Severe persistent headache * Shortness of breath * Reddened, hot, painful area to leg or breast * Drainage or odor from incision. * Keep incision clean and dry at all times and follow doctor's instructions regarding bathing/showering [facility] Referral initiated - Follow up plan Follow up: VIRIDIANA PEREZ MD [Primary Care Provider] - 7 Days
[2019-12-24 12:05] VITALS: BP 134/76
== END 2019-12-24 11:50 | disposition home or self-care (01) ==
LOC: UNDOADMOB 16:15 → 3A 16:15 → OB 16:58
PROVIDERS: ADMIT Obstetrics & Gynecology; ATTEND Obstetrics & Gynecology
DX: O21.0 Mild hyperemesis gravidarum (principal); Z20.828 Contact with and (suspected) exposure to other viral communicable diseases; Z3A.10 10 weeks gestation of pregnancy; Z98.891 History of uterine scar from previous surgery; Z79.899 Other long term (current) drug therapy
CPT/HCPCS: 36415; 80048; 80074; 81001; 82010; 82150; 83690; 84443; 85025; 87086; 96361; 96374; 96376; G0378; G0379; J2765; J7121; U0003